=== PATIENT | female | born 1945 | race African-American/Black ===

== ENCOUNTER 2019-08-17 12:14 | Emergency (ER) | payer MEDICARE, SELFPAY ==
[2019-08-17 12:28] VITALS: BP 182/75; PULSE 66; RESP 18; TEMP 36.6; O2SAT 99
--- NOTE | 2019-08-17 12:49 | ED.EAR ---
HPI - Ear Problem General Chief complaint: Ear Stated complaint: Congestion Source: patient Mode of arrival: ambulatory Limitations: no limitations History of Present Illness HPI Narrative: Patient is a 74-year-old female who presents complaining of left ear pain increasing over the past 2 weeks. Patient also reports decreased hearing. Patient has been using TobraDex drops from a previous ear problem without relief. Patient denies taking Tylenol or ibuprofen for pain. Patient is hypertensive and reports noncompliance with meds x1 year. MD Complaint: ear pain Location: left ear Related Data Home Medications Medication Instructions Recorded Confirmed amlodipine 5 mg tablet 5 mg PO DAILY 05/23/19 atorvastatin 20 mg tablet 20 mg PO DAILY 05/23/19 lisinopril 10 mg tablet 10 mg PO DAILY 05/23/19 ranitidine HCl 300 mg tablet 300 mg PO DAILY 05/23/19 Allergies Allergy/AdvReac Type Severity Reaction Status Date / Time NEOMYCIN POLYMYXIN B Allergy Mild unknown Uncoded 06/13/19 10:49 SULFATES AND HYDROCORTISONE OTIC Review of Systems Review of Systems: Narrative: CONSTITUTIONAL: Denies fever, chills, or sweats. EYES: Denies visual changes, redness, or discharge. ENT: Denies rhinorrhea, congestion, sore throat, reports left otalgia. CARDIOVASCULAR: Denies chest pain, palpitations, or edema. RESPIRATORY: Denies cough or dyspnea. GASTROINTESTINAL: Denies abdominal pain, nausea, vomiting, or diarrhea. GENITOURINARY: Denies dysuria or hematuria. SKIN: Denies rash or itching. MUSCULOSKELETAL: Denies back pain, joint pain, or myalgia. NEUROLOGIC: Denies headache, numbness, dizziness, or weakness. PSYCHIATRIC: Denies anxiety or depression. [facility] Past Medical History Medical History Allergic rhinitis Chronic low back pain Diabetes mellitus Gastroesophageal reflux HLD (hyperlipidemia) HTN (hypertension) PUD (peptic ulcer disease) Surgical History Surgical History History of total hysterectomy Family History Family History Other Diabetes mellitus Hypertension Social History Social History Smoking status: Former smoker Tobacco type: cigarettes Second hand tobacco smoke exposure: Yes Smoking end date: 07/10/97 Alcohol intake: never Substance use: never Exam Narrative: Exam Narrative: GENERAL: Well-appearing, well-nourished, and in no acute distress. HEAD: Normocephalic, atraumatic. EYES: EOMI. No redness or drainage. Conjunctiva are normal. ENT: Mucous membranes pink and moist. Nares clear. No rhinorrhea. TMs normal bilaterally after removal of cerumen. Throat normal. Uvula midline. NECK: AROM. Supple. No lymphadenopathy. CHEST: No respiratory distress. Clear to auscultation. HEART: Regular rate and rhythm. No murmur appreciated. Normal peripheral pulses. GI: Soft, nontender without rebound, or guarding. No distention. Bowel sounds normal in all quadrants. MUSCULOSKELETAL: No bony tenderness. EXTREMITIES: Normal range of motion. No edema. SKIN: Warm, dry, no rash. NEURO: No focal deficits. Alert and oriented x3. Gait steady. PSYCH: Normal affect. No signs of depression or anxiety. Course Vital Signs Vital signs: Vital Signs Temperature 36.6 C 08/17/19 12:28 Pulse Rate 66 08/17/19 12:28 Respiratory Rate 18 08/17/19 12:28 Blood Pressure 182/75 H 08/17/19 12:28 Pulse Oximetry 99 08/17/19 12:28 Temperature 36.6 C 08/17/19 12:28 Pulse Rate 66 08/17/19 12:28 Respiratory Rate 18 08/17/19 12:28 Blood Pressure 182/75 H 08/17/19 12:28 Pulse Oximetry 99 08/17/19 12:28 Reviewed. Patient has been instructed to follow-up with her PCP regarding her blood pressure. Procedures Ear Wax Removal Both Ears: Ear Wax Rem
--- NOTE | 2019-08-17 13:00 | PC.NURSE ---
ear irrigation set up.
--- NOTE | 2019-08-17 13:30 | PC.NURSE ---
1324 garde manager in to do irrigation.
== END 2019-08-17 14:00 | disposition home or self-care (01) ==
PROVIDERS: Emergency Provider Nurse Practitioner; PCP Family Medicine
DX: H61.23 Impacted cerumen, bilateral (principal); Z87.891 Personal history of nicotine dependence; E11.9 Type 2 diabetes mellitus without complications; K21.9 Gastro-esophageal reflux disease without esophagitis; E78.5 Hyperlipidemia, unspecified; I10 Essential (primary) hypertension; K27.9 Peptic ulcer, site unspecified, unspecified as acute or chronic, without hemorrhage or perforation
CPT/HCPCS: 69210; 99213; G0463

== ENCOUNTER 2020-05-26 10:23 | Emergency (ER) | payer MEDICARE, SELFPAY ==
--- NOTE | 2020-05-26 10:34 | ED.GENADULT ---
HPI - General Adult General Chief complaint: Wound/Laceration Stated complaint: Infected left thumb/right pinky finger Time Seen by Provider: 05/26/20 10:43 Source: patient and RN notes reviewed Mode of arrival: ambulatory Limitations: no limitations History of Present Illness HPI narrative: 74-year-old female presents with concern for infection near her fingernail of the second digit of the left hand and the fifth digit of the right hand. Reports she had calluses in those areas that she was picking up. Reports she has been soaking them in water, apple cider vinegar, baking soda. Reports she has been using antibiotic ointment and lotion with some relief, however the area is not resolving. She denies any decreased sensation, range of motion, strength. MD complaint: paronychia Related Data Home Medications Medication Instructions Recorded Confirmed Benadryl DAILY 05/26/20 Fish Oil 05/26/20 [place] 05/26/20 Garlic Vitamin 05/26/20 [place] 05/26/20 Vitamin B 05/26/20 Vitamin D 05/26/20 Vitamin E 05/26/20 Zinc 05/26/20 Allergies Allergy/AdvReac Type Severity Reaction Status Date / Time NEOMYCIN POLYMYXIN B Allergy Mild unknown Uncoded 09/03/19 09:18 SULFATES AND HYDROCORTISONE OTIC Review of Systems Review of Systems: Narrative: CONSTITUTIONAL: Denies malaise, chills, sweats, or fever. CARDIOVASCULAR: Denies chest pain, palpitations RESPIRATORY: Denies cough or dyspnea. SKIN: Reports tender infected area near the nail of the second digit of the left hand and fifth digit of the right hand MUSCULOSKELETAL: Denies myalgia. NEUROLOGIC: Denies numbness, weakness All systems reviewed & are unremarkable except as noted in HPI and below [facility] Past Medical History Medical History (Updated 05/26/20 @ 11:01 by Jazmín Shin NP) Allergic rhinitis Chronic low back pain Diabetes Diabetes mellitus Gastroesophageal reflux HLD (hyperlipidemia) HLD (hyperlipidemia) HTN (hypertension) HTN (hypertension) PUD (peptic ulcer disease) Surgical History Surgical History History of total hysterectomy Family History Family History Other Diabetes mellitus Family history of arthritis Family history of cardiovascular disease Hypertension Social History Social History Smoking status: Never smoker Tobacco type: cigarettes Second hand tobacco smoke exposure: Yes Smoking end date: 07/10/97 Alcohol intake: never Substance use: never Comments At time of signature, agree with nursing past medical, surgical, social and family history. There is no relevant family history pertinent to the presenting complaint Exam Narrative: Exam Narrative: GENERAL: Well-appearing, well-nourished, and in no acute distress. HEAD: Normocephalic EYES: PERRLA, conjunctivae clear ENT: Mucous membranes moist. NECK: Supple. CHEST: No respiratory distress. Speaks in full sentences. HEART: Regular rate and rhythm. Normal peripheral pulses. EXTREMITIES: Lateral hand and digits have grossly normal range of motion, gross no edema, grossly normal strength and sensation. SKIN: Warm, dry, no rash. Paronychia with surrounding callus noted the lateral edge of the nailbed of the second edge of the left hand, a callus noted at the lateral edge of the nailbed to the fifth digit of the right hand NEURO: Alert and oriented x3. PSYCH: Normal mood and affect Course Course Emergency Course: Patient is aware of diagnosis, understands and agrees to treatment plan. Anticipatory guidance given. Patient agrees to follow-up as directed and is aware of reasons to seek care at the emergency department. Portions of this record may have been created with voice recognition software Vital Signs Vital signs: Reviewed. Medical Decision Making MDM Narrati
[2020-05-26 10:40] VITALS: BP 206/67; PULSE 64; RESP 16; TEMP 36.7; O2SAT 99
== END 2020-05-26 11:05 | disposition home or self-care (01) ==
PROVIDERS: Emergency Provider Nurse Practitioner; PCP Family Medicine
DX: L03.012 Cellulitis of left finger (principal); E11.9 Type 2 diabetes mellitus without complications; K21.9 Gastro-esophageal reflux disease without esophagitis; E78.5 Hyperlipidemia, unspecified; I10 Essential (primary) hypertension; K27.9 Peptic ulcer, site unspecified, unspecified as acute or chronic, without hemorrhage or perforation
CPT/HCPCS: 99213; G0463

== ENCOUNTER 2021-01-25 08:56 | Emergency (ER) | payer MEDICARE, SELFPAY ==
[2021-01-25 09:06] VITALS: BP 164/76; PULSE 83; RESP 16; TEMP 36.2; O2SAT 99
[2021-01-25 09:07] VITALS: BP 164/76; PULSE 83; RESP 16; TEMP 36.2; O2SAT 99
--- NOTE | 2021-01-25 09:47 | ED.URI ---
HPI - URI/Sore Throat General Chief Complaint: Upper Respiratory Infection Stated Complaint: Allergies History of Present Illness HPI Narrative: This is a 75-year-old female comes in complaining of allergy symptoms states that she has pressure in her face and her nears. Patient states that she has been taking holistic medication to no relief states that has been going on for approximately 7 days. No fever nausea vomiting and has not been exposed to Related Data Allergies Allergy/AdvReac Type Severity Reaction Status Date / Time NEOMYCIN POLYMYXIN B Allergy Mild unknown Uncoded 01/25/21 09:45 SULFATES AND HYDROCORTISONE OTIC Review of Systems Review of Systems: CONSTITUTIONAL: Denies fever, chills, or sweats. EYES: Denies visual changes, redness, or discharge. ENT: reports rhinorrhea, congestion, sore throat, or otalgia. CARDIOVASCULAR:Denies chest pain, palpitations, or edema. RESPIRATORY: Denies cough or dyspnea. reports sneezes GASTROINTESTINAL: Denies abdominal pain, nausea, vomiting, or diarrhea. GENITOURINARY: Denies dysuria or hematuria. SKIN:[Denies rash or itching. MUSCULOSKELETAL:Denies back pain, joint pain, or myalgia. NEUROLOGIC: Denies headache, numbness, or weakness. PSYCHIATRIC:Denies anxiety or depression [facility] Past Medical History Medical History (Updated 01/25/21 @ 09:48 by Rolan Vila NP) Allergic rhinitis Chronic low back pain Diabetes Diabetes mellitus Gastroesophageal reflux HLD (hyperlipidemia) HLD (hyperlipidemia) HTN (hypertension) HTN (hypertension) PUD (peptic ulcer disease) Surgical History Surgical History History of total hysterectomy Family History Family History Other Diabetes mellitus Family history of arthritis Family history of cardiovascular disease Hypertension Social History Social History Smoking status: Never smoker Tobacco type: cigarettes Second hand tobacco smoke exposure: Yes Smoking end date: 07/10/97 Alcohol intake: never Substance use: never Comments At time as signature, I have reviewed and agree with nursing past medical, social, surgical and family history. Please see nursing chart for further information. There is no relevant family history pertinent to the presenting complaint. Exam Narrative: GENERAL:Well-appearing, well-nourished, and in no acute distress. HEAD:Normocephalic, atraumatic. EYES: PERRLA and EOMI. ENT: Nares clear, mild rhinorrhea T-zone frontal pain mucous membranes moist. CHEST: Clear to auscultation. No respiratory distress. HEART: Regular rate and rhythm. No murmur heard. Normal peripheral pulses. ABDOMEN: Soft, nontender, nondistended, normal active bowel sounds. EXTREMITIES: Normal range of motion. No edema. SKIN: Warm, dry, no rash. NEURO: No focal deficits. Alert and oriented x3. Course Vital Signs Vital signs: Vital Signs Temperature 97.2 F L 01/25/21 09:06 Pulse Rate 83 01/25/21 09:06 Respiratory Rate 16 01/25/21 09:06 Blood Pressure 164/76 H 01/25/21 09:06 Pulse Oximetry 99 01/25/21 09:06 Temperature 97.2 F L 01/25/21 09:07 Pulse Rate 83 01/25/21 09:07 Respiratory Rate 16 01/25/21 09:07 Blood Pressure 164/76 H 01/25/21 09:07 Pulse Oximetry 99 01/25/21 09:07 MDM - URI/Sore Throat Differential Diagnosis Differential diagnosis: Likely upper respiratory infection, otitis media, sinusitis, viral infection, bronchitis and pharyngitis Discharge Plan Discharge Clinical Impression: Sinusitis Qualifiers: Sinusitis location: frontal Chronicity: unspecified Qualified Code(s): J32.1 - Chronic frontal sinusitis Patient Disposition: Home, Self-Care Condition: Stable Instructions: Antibiotic Form, Rhinosinusitis (ED), Allergies (ED), Warm Compress or Soak (ED)
== END 2021-01-25 09:57 | disposition home or self-care (01) ==
PROVIDERS: Emergency Provider Nurse Practitioner Family; PCP Family Medicine
DX: J32.1 Chronic frontal sinusitis (principal); E11.9 Type 2 diabetes mellitus without complications; K21.9 Gastro-esophageal reflux disease without esophagitis; E78.5 Hyperlipidemia, unspecified; I10 Essential (primary) hypertension; K27.9 Peptic ulcer, site unspecified, unspecified as acute or chronic, without hemorrhage or perforation
CPT/HCPCS: 99213; G0463

== ENCOUNTER 2021-08-23 11:06 | Emergency (ER) | payer MEDICARE, SELFPAY ==
[2021-08-23] VITALS (28 sets, daily range): BP systolic 164–227; BP diastolic 57–86; PULSE 63–100; RESP 12–25; TEMP 36.6–36.8; O2SAT 98–100
--- NOTE | ~2021-08-23 | XR_ITS ---
EXAMINATION: XR chest 2V DATE: 08/23/2021 12:25 INDICATION: Hypertension TECHNIQUE: PA and lateral views of the chest were obtained. COMPARISON: Chest radiograph dated 03/16/2012 FINDINGS: Unchanged mild linear discoid atelectasis/scarring at the lingula. No other airspace opacities, pulmo nary edema, pleural effusion or pneumothorax. The cardiomediastinal silhouette is normal. Mild thorac ic spondylosis. IMPRESSION: 1. No acute cardiopulmonary disease. Reviewed, dictated and finalized at location A.
--- NOTE | ~2021-08-23 | CT_ITS ---
EXAMINATION: CT brain wo con DATE: 08/23/2021 12:33 INDICATION: Symptomatic hypertension TECHNIQUE: Computed tomography (CT) of the head was performed without intravenous contrast. Sagittal and coronal reconstructions were performed. The mA was adjusted according to patient size. Iterative reconstruction technique was employed. The dose-length product was 605.33 mGy-cm. COMPARISON: None FINDINGS: No acute intracranial hemorrhage, acute infarction or abnormal extra axial fluid collection. There is mild scattered white matter hypoattenuation consistent with chronic small vessel ischemic disease. V entricles are normal and symmetric. No mass/mass effect. The orbits, paranasal sinuses and mastoid a ir cells are normal. IMPRESSION: 1. No acute intracranial process. 2. Mild scattered white matter hypoattenuation consistent with chronic small vessel ischemic disease. Reviewed, dictated and finalized at location A. IMPRESSION: 1. No acute intracranial process. 2. Mild scattered white matter hypoattenuation consistent with chronic small ve ssel ischemic disease.
--- NOTE | 2021-08-23 11:24 | PC.NURSE ---
PT REPORTS SHE WENT TO [facility]ENTIST TO HAVE DENTAL WORK DONE AND WAS TOLD TO GO TO URGENT CARE BECAUSE BP ELEVATED. PT REPORTS SHE WENT TO HER PCP AND WAS TOLD TO COME TO THE ED FOR ELEVATED BP. DENIES ANY CP OR DIZZINESS
--- NOTE | 2021-08-23 11:27 | ECG_ITS ---
Measurements Intervals [place] Rate: 69 P: 58 MA: 136 QRS: 75 QRSD: 106 T: 86 QT: 388 QTc: 417 Interpretive Statements SINUS RHYTHM NONSPECIFIC T-WAVE ABNORMALITY NO PREVIOUS ECG AVAILABLE FOR COMPARISON Electronically Signed On 08-23-2021 18:37:17 CDT by Hiwot De Souza M.D.
[2021-08-23] MEDS: hydrALAZINE HCL 20 MG/ML VIAL 10 MG IV PUSH ×2 (12:47→15:19)
--- NOTE | 2021-08-23 12:50 | ED.GENADULT ---
HPI - General Adult General Chief complaint: Recheck/Abnormal Lab/Rx Stated complaint: High Blood Pressure Time Seen by Provider: 08/23/21 12:16 Source: patient, RN notes reviewed and old records reviewed History of Present Illness HPI narrative: 76-year-old female presenting to the emergency department for evaluation of elevated blood pressure. Patient was having follow-up with her primary care physician regarding a dental issue when she was found to have an elevated blood pressure. Patient was referred to the emergency department for evaluation. At that time patient states she was having some left hand tingling. Patient states this is chronic and due to her underlying carpal tunnel. Patient denies any other numbness weakness or headache. Patient has had previous follow-up with her primary care physician regarding her blood pressure. Patient states after she started blood pressure medications that her blood pressures have been elevated. Related Data Home Medications Medication Instructions Recorded Confirmed tobramycin 0.3 %-dexamethasone 0.1 See Rx Instructions .ROUTE QID PRN 02/25/21 % eye drops,suspension Allergies Allergy/AdvReac Type Severity Reaction Status Date / Time NEOMYCIN POLYMYXIN B Allergy Mild unknown Uncoded 01/25/21 09:45 SULFATES AND HYDROCORTISONE OTIC Review of Systems Review of Systems: CONSTITUTIONAL: Denies fever, chills, or sweats. EYES: Denies visual changes, redness, or discharge. ENT: Denies rhinorrhea, congestion, sore throat, or otalgia. CARDIOVASCULAR: Denies chest pain, palpitations, or edema. RESPIRATORY: Denies cough or dyspnea. GASTROINTESTINAL: Denies abdominal pain, nausea, vomiting, or diarrhea. GENITOURINARY: Denies dysuria or hematuria. SKIN: Denies rash or itching. MUSCULOSKELETAL: Denies back pain, joint pain, or myalgia. NEUROLOGIC: Denies headache, numbness, or weakness. [facility] Past Medical History Medical History (Updated 08/23/21 @ 15:23 by Humberto Canela MD) Allergic rhinitis Chronic low back pain Diabetes Diabetes mellitus Gastroesophageal reflux HLD (hyperlipidemia) HLD (hyperlipidemia) HTN (hypertension) HTN (hypertension) PUD (peptic ulcer disease) Surgical History Surgical History History of total hysterectomy Family History Family History Other Diabetes mellitus Family history of arthritis Family history of cardiovascular disease Hypertension Social History Social History Smoking status: Former smoker Tobacco type: cigarettes Second hand tobacco smoke exposure: Yes Smoking end date: 07/10/97 Alcohol intake: never Substance use: never Substance use type: does not use Exam Narrative: APPEARANCE: Well appearing, no pain, no distress, well-nourished. HEAD: normocephalic, atraumatic. EYES: PERRLA/EOMI, conjunctivae clear. NOSE: Normal no drainage NECK: Supple. No adenopathy, no masses. RESPIRATORY: Airway patent, respirations nonlabored. Clear to auscultation bilaterally, no rales, rhonchi, wheezing. CARDIOVASCULAR: Regular rate and rhythm without murmurs rubs or gallops. ABDOMINAL: Soft, nontender, nondistended, normal bowel sounds MUSCULOSKELETAL: Moves all extremities. Strength/ROM intact, No edema, No calf tenderness. NEURO: Alert. Cranial nerves II through XII intact. Good coordination SKIN: Warm, dry. Normal Color PSYCHIATRIC: Normal affect/mood. Course Consultations Consultation #1: Dr Toro, PCP. Case was discussed with the primary care physician. She thought the patient had previously been on amlodipine but has stopped this. Patient states that she stopped amlodipine because she had heard that some of the amlod[place] shipping from [place] have been contaminated so she stopped taking this med. Vital Signs Vital signs: Vital Sig
[2021-08-23 13:06] LABS: Basophils Absolute Auto 0.1 K/mm3 (0.0-0.1); Basophils Percent Auto 0.7 % (0.2-1.2); Eosinophils Absolute Auto 0.2 K/mm3 (0-0.3); Eosinophils Percent Auto 2.4 % (0-4.4); Hematocrit 42.4 % (37.0-47.0); Hemoglobin 13.5 g/dL (12.0-15.0); Immature Granulocyte Absolute 0.03 K/mm3 (0.00-0.031); Immature Granulocyte Percent A 0.4 % (0-0.5); Lymphocytes Percent Auto 35.6 % (18.3-44.2); Mean Corpuscular HGB Conc 31.8 g/dl (32-36); Mean Corpuscular Hemoglobin 28.5 pg (26-34); Mean Corpuscular Volume 89.5 fl (80-100); Mean Platelet Volume 10.1 fl (7.4-10.4); Monocytes Absolute Auto 0.7 K/mm3 (0.1-0.6); Monocytes Percent Auto 9.8 % (2.6-8.5); Neutrophils Absolute Auto 3.5 K/mm3 (1.3-6.7); Neutrophils Percent Auto 51.1 % (45.5-73.1); Platelet Count Result 243 k/mm3 (150-375); Red Blood Count 4.74 M/mm3 (4.2-5.4); Red Cell Distribution Width 14.2 % (11.5-14.5); White Blood Count 6.8 K/mm3 (4.5-10.0)
[2021-08-23 13:10] LABS: Add Urine Microscopic? NO; Appearance Urine Clear (Clear); Bilirubin Urine Negative (Negative); Blood Urine Negative (Negative); Color Urine Straw (Yellow); Glucose Urine UA Negative (Negative); Ketones Urine Negative (Negative); Leukocyte Esterase Ur Negative LEU/UL (Negative); Nitrate Urine Negative (Negative); Protein Urine Negative (Negative); Urobilinogen Urine Negative mg/dL (<2.0)
[2021-08-23 13:19] LABS: Alanine Aminotransferase 20 U/L (4-35); Albumin Level 4.1 g/dL (3.5-5.1); Alkaline Phosphatase 95 U/L (38-126); Anion Gap 5 mmol/L (8-16); Aspartate Amino Transferase 21 U/L (14-36); Bilirubin,Total 0.3 mg/dL (0.2-1.3); Blood Urea Nitrogen 9 mg/dL (7-17); Calcium 9.2 mg/dL (8.4-10.2); Carbon Dioxide 27 mmol/L (22-30); Chloride 108 mmol/L (98-107); Estimated CRCL calculation 64 ml/min; Estimated Glomerular Filt Rate > 60; Glucose 154 mg/dL (65-110); Potassium 4.3 mmol/L (3.4-5.0); Sodium 140 mmol/L (137-145)
[2021-08-23 13:29] LABS: Specific Grav Ur 1.003 (1.001-1.035)
[2021-08-23 13:31] LABS: Troponin I < 0.012 ng/mL (0.000-0.034)
[2021-08-23 15:19] LABS: Troponin I < 0.012 ng/mL (0.000-0.034)
[2021-08-23] MEDS: amLODIPine BESYLATE 5 MG TABLET PO (15:19)
== END 2021-08-23 15:52 | disposition home or self-care (01) ==
PROVIDERS: Emergency Provider Emergency Medicine; PCP Family Medicine
DX: E11.9 Type 2 diabetes mellitus without complications (principal); E78.5 Hyperlipidemia, unspecified; I10 Essential (primary) hypertension; Z87.11 Personal history of peptic ulcer disease; Z87.891 Personal history of nicotine dependence
CPT/HCPCS: 36415; 70450; 71046; 80053; 81003; 84484; 85025; 93005; 96374; 96376; 99284; A9270; J0360

== ENCOUNTER 2022-02-01 16:11 | Emergency (ER) | payer MEDICARE, SELFPAY ==
[2022-02-01 16:25] VITALS: BP 194/62; PULSE 76; RESP 16; TEMP 36.5; O2SAT 98
--- NOTE | 2022-02-01 17:40 | ED.DENTAL ---
HPI - Dental/Oral General Chief complaint: Dental/Oral Stated complaint: nonhealing wounds in mouth Time Seen by Provider: 02/01/22 17:41 Source: patient, RN notes reviewed and old records reviewed Mode of arrival: ambulatory Limitations: no limitations History of Present Illness HPI Narrative: 76-year-old female who presents to [facility] care with complaints of nonhealing lesions to her mouth for the past week with swelling to the left side of her face. Patient states that she had dental procedure done 6 months ago planing and scaling along gums. Patient states that she has been using salt water gargles and she has been taking some Tylenol. Patient denies any difficulty with swallowing no trismus noted. Onset (ago): week(s) (1) Severity scale (1-10): 3 Treatment prior to arrival: oral analgesic and other (salt water gargles) Related Data Home Medications Medication Instructions Recorded Confirmed atorvastatin 10 mg tablet mg 02/01/22 02/01/22 Allergies Allergy/AdvReac Type Severity Reaction Status Date / Time NEOMYCIN POLYMYXIN B Allergy Mild unknown Uncoded 02/01/22 17:38 SULFATES AND HYDROCORTISONE OTIC Review of Systems Review of Systems: CONSTITUTIONAL: Denies fever, chills, or sweats. EYES: Denies visual changes, redness, or discharge. ENT: Denies rhinorrhea, congestion, sore throat, or otalgia.positive for redness and swelling of left upper gums with small white lesions and left facial swelling CARDIOVASCULAR: Denies chest pain, palpitations, or edema RESPIRATORY: Denies cough or dyspnea. GASTROINTESTINAL: Denies abdominal pain, nausea, vomiting, or diarrhea. GENITOURINARY: Denies dysuria or hematuria. SKIN: Denies rash or itching. MUSCULOSKELETAL: Denies back pain, joint pain, or myalgia. NEUROLOGIC: Denies headache, numbness, or weakness. PSYCHIATRIC: Denies anxiety or depression. All systems reviewed & are unremarkable except as noted in HPI and below PMF[facility] Past Medical History Medical History (Updated 02/02/22 @ 00:00 by Sandra Winkler) Allergic rhinitis Chronic low back pain Diabetes Diabetes mellitus Gastroesophageal reflux HLD (hyperlipidemia) HLD (hyperlipidemia) HTN (hypertension) HTN (hypertension) PUD (peptic ulcer disease) Surgical History Surgical History H/O hemorrhoidectomy History of hysterectomy Family History Family History Other Diabetes mellitus Family history of arthritis Family history of cardiovascular disease Hypertension Social History Social History Tobacco type: cigarettes Second hand tobacco smoke exposure: Yes Smoking end date: 07/10/97 Alcohol intake: never Substance use: never Substance use type: does not use Gender identity (if verbalized by the patient): Female Sexual Orientation (if Verbalized by the Patient): Straight or Heterosexual Spiritual care concerns: No Agree to blood products: Yes Comments At time of signature, agree with nursing past medical, surgical, social and family history. There is no relevant family history pertinent to the presenting complaint Exam Narrative: GENERAL: Well-appearing, well-nourished, and in no acute distress. HEAD: Normocephalic, atraumatic. EYES: PERRLA and EOMI. ENT: Nares clear, no rhinorrhea or epistaxis. Mucous membranes moist.TM's normal; throat pink with no lesions noted,no tonsil swelling, red swollen left upper gums with small white lesions with some facial swelling left side of face, no difficulty with swallowing no Herb angina, no trismus NECK: Supple.no lymphadenopathy CHEST: Clear to auscultation. No respiratory distress.SAO2 98% on room air HEART: Regular rate and rhythm. No murmur heard. Normal peripheral pulses. ABDOMEN: Soft, nontender, nondistended, normal active bowel sounds. EXTREMITIES: Normal range
== END 2022-02-01 18:08 | disposition home or self-care (01) ==
PROVIDERS: Emergency Provider Registered Nurse; PCP Family Medicine
DX: K12.0 Recurrent oral aphthae (principal); K05.10 Chronic gingivitis, plaque induced; Z87.891 Personal history of nicotine dependence; E11.9 Type 2 diabetes mellitus without complications; K21.9 Gastro-esophageal reflux disease without esophagitis; E78.5 Hyperlipidemia, unspecified; I10 Essential (primary) hypertension
CPT/HCPCS: 99213; G0463

== ENCOUNTER 2022-09-24 09:09 | Emergency (ER) | payer MEDICARE, SELFPAY ==
--- NOTE | 2022-09-24 09:18 | ED.URI ---
HPI - URI/Sore Throat General Chief Complaint: Upper Respiratory Infection Stated Complaint: Allergies Time Seen by Provider: 09/24/22 09:49 Source: patient and RN notes reviewed Mode of arrival: ambulatory Limitations: no limitations History of Present Illness HPI Narrative: 77-year-old female presents concern allergies with sinus congestion and drainage, discomfort in her ears, scratchy throat. Reports he has a typical for her sinus symptoms she has had since Sunday. Reports they worsened after her shower reports she recently started taking her Zyrtec again, she has been taking Benadryl. Reports she has Flonase that she has been using it. She denies fever, aches, chills, sweats, cough, shortness of breath, denies known sick contacts MD elicited complaint: cough, rhinorrhea, nasal congestion and sinus pain Related Data Allergies Allergy/AdvReac Type Severity Reaction Status Date / Time NEOMYCIN POLYMYXIN B Allergy Mild unknown Uncoded 09/24/22 09:17 SULFATES AND HYDROCORTISONE OTIC Review of Systems Review of Systems: CONSTITUTIONAL: Denies malaise, chills, sweats, or fever. EYES: Denies visual changes, redness, or discharge. ENT: Reports rhinorrhea, congestion, sinus pain, otalgia and scratchy throat. CARDIOVASCULAR: Denies chest pain, palpitations, or edema. RESPIRATORY: Denies cough. Denies dyspnea. GASTROINTESTINAL: Denies abdominal pain, nausea, vomiting, diarrhea SKIN: Denies rash or itching. MUSCULOSKELETAL: Denies myalgia. NEUROLOGIC: Denies headache. All systems reviewed & are unremarkable except as noted in HPI and below PMFSH Past Medical History Medical History Allergic rhinitis Chronic low back pain Diabetes Diabetes mellitus Gastroesophageal reflux HLD (hyperlipidemia) HLD (hyperlipidemia) HTN (hypertension) HTN (hypertension) PUD (peptic ulcer disease) Surgical History Surgical History H/O hemorrhoidectomy History of hysterectomy Family History Family History Other Diabetes mellitus Family history of arthritis Family history of cardiovascular disease Hypertension Social History Social History (Updated 06/27/22 @ 09:37 by Maritza Osborn CMA) Smoking status: Former smoker Tobacco type: cigarettes Second hand tobacco smoke exposure: Yes Smoking end date: 07/10/97 Alcohol intake: never Substance use: never Substance use type: does not use Lack of Transportation: No Lack of Food: Never True Current Housing: I Have Housing Concerned About Future Housing: No Difficulty Paying Gas/Electric Bills: No Difficulty Paying for Meds: No Currently Unemployed: No Education: Master's Degree or Higher Difficulty w/ Childcare or Family Care: No Living arrangements: with family Gender identity (if verbalized by the patient): Female Sexual Orientation (if Verbalized by the Patient): Straight or Heterosexual Spiritual care concerns: No Agree to blood products: Yes Comments At time of signature, agree with nursing past medical, surgical, social and family history. There is no relevant family history pertinent to the presenting complaint Exam Narrative: GENERAL: Well-appearing, well-nourished, and in no acute distress. HEAD: Normocephalic EYES: PERRLA, conjunctivae clear ENT: Nares clear, turbinates edematous and erythematous, clear discharge. Mucous membranes moist. TM pearly jeffrey with dull light reflex bilaterally; no tragal tenderness. Oropharynx not erythematous without lesions. Tonsils not enlarged and without exudate, no drooling, no hoarseness, no trismus, uvula midline. NECK: Supple. No lymphadenopathy CHEST: Clear to auscultation, breath sounds equal. No wheezing, rhonchi, rales, or stridor. No respiratory distress, speaks in full sentences. HEART: Regular rate and rhythm. No m
[2022-09-24 09:36] VITALS: BP 166/70; PULSE 72; RESP 20; TEMP 36.9; O2SAT 99
== END 2022-09-24 10:15 | disposition home or self-care (01) ==
PROVIDERS: Emergency Provider Nurse Practitioner; PCP Family Medicine
DX: J01.90 Acute sinusitis, unspecified (principal); Z87.891 Personal history of nicotine dependence; E11.9 Type 2 diabetes mellitus without complications; K21.9 Gastro-esophageal reflux disease without esophagitis; E78.5 Hyperlipidemia, unspecified; I10 Essential (primary) hypertension; K27.9 Peptic ulcer, site unspecified, unspecified as acute or chronic, without hemorrhage or perforation
CPT/HCPCS: 99213; G0463

== ENCOUNTER 2023-10-16 17:17 | Emergency (ER) | payer MEDICARE, SELFPAY ==
--- NOTE | 2023-10-16 17:28 | ED.EYEPROB ---
HPI - Eye Problem General Chief complaint: Ear Stated complaint: Left Eye Irritation Time Seen by Provider: 10/16/23 17:28 Source: patient Mode of arrival: ambulatory Limitations: no limitations History of Present Illness HPI Narrative: Patient is a 78-year-old female presents with left eye irritation, redness and watering that started today. Patient also has left ear pain. Patient has chronic otitis externa and has been seen by ENT. Denies any fever, chills, nausea, vomiting, diarrhea. Related Data Home Medications Medication Instructions Recorded Confirmed enalapril maleate 5 mg tablet 10 mg PO DAILY 10/03/22 10/16/23 dapagliflozin propanediol 10 mg 10 mg PO DAILY 10/16/23 10/16/23 tablet (Farxiga) fexofenadine 60 mg tablet 120 mg PO DAILY 10/16/23 10/16/23 Allergies Allergy/AdvReac Type Severity Reaction Status Date / Time NEOMYCIN POLYMYXIN B Allergy Mild unknown Uncoded 10/16/23 17:20 SULFATES AND HYDROCORTISONE OTIC Review of Systems Review of Systems: All systems reviewed & are unremarkable except as noted in HPI and below Constitutional: Constitutional: Denies body ache(s), Denies fever(s), Denies headache(s), Denies malaise and Denies weakness Eyes: Eyes: Denies blurry vision, Denies eye discharge, Reports irritation, Reports itchy eyes, Denies loss of vision and Denies eye pain ENT: Reports otalgia, Denies headache(s), Denies nasal discharge, Denies sinus pain and Denies sore throat Cardiovascular: Cardiovascular: Denies chest pain, Denies irregular heart rhythm and Denies dyspnea Respiratory: Respiratory: Denies dyspnea Gastrointestinal: Gastrointestinal: Denies abdominal pain, Denies diarrhea, Denies nausea and Denies vomiting Musculoskeletal: Musculoskeletal: Denies back pain, Denies myalgias and Denies arthralgias Integumentary/Breasts: Skin/Breast: Denies pruritus and Denies rash Neurologic: Denies headache(s), Denies loss of vision and Denies weakness Psychiatric: Psychiatric: Reports no additional psychiatric complaints Allergic/Immunologic: Allergic/Immunologic: Reports itchy eyes PMFSH Past Medical History Medical History Allergic rhinitis Chronic low back pain Diabetes Diabetes mellitus Gastroesophageal reflux HLD (hyperlipidemia) HLD (hyperlipidemia) HTN (hypertension) HTN (hypertension) PUD (peptic ulcer disease) Surgical History Surgical History H/O hemorrhoidectomy History of hysterectomy Family History Family History Other Diabetes mellitus Family history of arthritis Family history of cardiovascular disease Hypertension Social History Social History Smoking status: Former smoker Tobacco type: cigarettes Second hand tobacco smoke exposure: Yes Smoking end date: 07/10/97 Alcohol intake: never Substance use: never Substance use type: does not use Lack of Transportation: No Lack of Food: Never True Current Housing: I Have Housing Concerned About Future Housing: No Difficulty Paying Gas/Electric Bills: No Difficulty Paying for Meds: No Currently Unemployed: No Education: Master's Degree or Higher Difficulty w/ Childcare or Family Care: No Living arrangements: with family Gender identity (if verbalized by the patient): Female Sexual Orientation (if Verbalized by the Patient): Straight or Heterosexual Spiritual care concerns: No Agree to blood products: Yes Comments At time of signature, agree with nursing past medical, surgical, social and family history. There is no relevant family history pertinent to the presenting complaint. Exam Const: General: cooperative, healthy appearing, comfortable, no acute distress and well nourished Nutritional Appearance: well nourished Orientatio
[2023-10-16 17:33] VITALS: BP 220/75; PULSE 78; RESP 16; TEMP 37.1; O2SAT 100
[2023-10-16 17:35] VITALS: BP 200/98
== END 2023-10-16 18:40 | disposition home or self-care (01) ==
PROVIDERS: Emergency Provider Nurse Practitioner Family; PCP Family Medicine
DX: H10.89 Other conjunctivitis (principal); H61.22 Impacted cerumen, left ear; H60.62 Unspecified chronic otitis externa, left ear; E11.9 Type 2 diabetes mellitus without complications; K21.9 Gastro-esophageal reflux disease without esophagitis; E78.5 Hyperlipidemia, unspecified; I10 Essential (primary) hypertension; Z87.891 Personal history of nicotine dependence; G89.29 Other chronic pain; M54.50 Low back pain, unspecified
CPT/HCPCS: 69209; 99213; G0463